=== PATIENT | female | born 1990 | race Two or more races ===

== ENCOUNTER 2021-01-07 14:40 | Emergency (ER) | payer BC ==
[~2021-01-07] VITALS: Ht 149.9 cm; Wt 52.2 kg
== END 2021-01-07 18:07 | disposition home or self-care (01) ==
LOC: ER 14:40
DX: S02.2XXA Fracture of nasal bones, initial encounter for closed fracture (principal); S01.21XA Laceration without foreign body of nose, initial encounter; W18.09XA Striking against other object with subsequent fall, initial encounter; Y93.19 Activity, other involving water and watercraft; Y92.832 Beach as the place of occurrence of the external cause; Y99.8 Other external cause status